=== PATIENT | female | born 1975 | race Caucasian/White ===

== ENCOUNTER 2019-03-30 23:06 | Observation (INO) | payer OTHER, MEDICAID ==
[~2019-03-30] VITALS: Ht 165.1 cm; Wt 102.1 kg
[2019-03-30 23:08] VITALS: BP 183/118
[2019-03-31] MEDS: NITROGLYCERIN 0.4 MG TAB SL ONE (00:03)
[2019-03-31 00:17] LABS: BASOPHILS % (AUTO) 0.6 % (0.0-2.0); EOSINOPHILS # (AUTO) 0.1 K/uL (0-0.4); EOSINOPHILS % (AUTO) 1.3 % (0.0-4.0); HEMATOCRIT 36.4 % (36-48); HEMOGLOBIN 11.5 g/dL (12.0-16.0); LYMPHOCYTES # (AUTO) 2.1 K/uL (2.5-16.5); LYMPHOCYTES % (AUTO) 29.8 % (20.5-51.1); MEAN CORPUSCULAR HEMOGLOBIN 25 pg (27-31); MEAN CORPUSCULAR HGB CONC 32 g/dL (33-37); MEAN CORPUSCULAR VOLUME 80.7 fL (80-94); MONOCYTES # (AUTO) 0.5 K/uL (0.8-1.0); MONOCYTES % (AUTO) 6.8 % (1.7-9.3); NEUTROPHILS # (AUTO) 4.4 K/uL (1.8-7.7); NEUTROPHILS % (AUTO) 61.5 % (42.2-75.2); PLATELET COUNT (AUTO) 339 K/uL (140-450); RED BLOOD CELL COUNT(AUTO) 4.51 MIL/uL (4.20-5.40); RED CELL DISTRIBUTION WIDTH 16.5 % (11.6-13.7); WHITE BLOOD COUNT (AUTO) 7.2 K/uL (4.8-10.8)
[2019-03-31 00:37] LABS: APPEARANCE,URINE SL CLOUDY (CLEAR); BILIRUBIN,URINE 1+ (NEGATIVE); BLOOD, URINE NEGATIVE (NEGATIVE); COLOR,URINE YELLOW (YELLOW); LEUKOCYTE ESTERASE ,URINE NEGATIVE (NEGATIVE); NITRITE, URINE NEGATIVE (NEGATIVE); PH,URINE 5.5 (5.0-9.0); UGLUCOSE NEGATIVE (NEGATIVE)
[2019-03-31 00:38] LABS: ALBUMIN 3.2 g/dL (3.4-5.0); ANION GAP 16.7 (8-16); CARBON DIOXIDE 22.4 mmol/L (21-32); CREATININE 0.8 mg/dL (0.6-1.3); POTASSIUM 4.1 mmol/L (3.5-5.1); TOTAL BILIRUBIN 0.4 mg/dL (0.0-1.0)
[2019-03-31] MEDS: NITROGLYCERIN 2% 1 GM PKT TP ONE (01:09)
[2019-03-31] MEDS: ONDANSETRON 4 MG/2 ML VIAL IVP ONE (01:16)
[2019-03-31] MEDS: FUROSEMIDE 20 MG/2 ML VIAL IVP ONE (01:44)
[2019-03-31 04:32] VITALS: BP 154/11
[2019-03-31] MEDS ORDERED: ONDANSETRON 4 MG/2 ML VIAL IVP PRN (04:55)
[2019-03-31] MEDS ORDERED: LORazepam 2 MG/ML VIAL IVP PRN (04:55)
[2019-03-31] MEDS ORDERED: MORPHINE SULFATE 2 MG/ML SYR IVP PRN (04:55)
[2019-03-31] MEDS ORDERED: amLODIPine 5 MG TAB ONE (12:20)
[2019-04-01] MEDS ORDERED: fentaNYL 0.05 MG/ML VIAL ONE (07:35)
[2019-04-01] MEDS ORDERED: LIDOCAINE 2% 100 MG/5 ML UJET TP ONE (07:35)
[2019-04-01] MEDS ORDERED: amLODIPine 5 MG TAB PO SCH (09:00)
== END 2019-03-31 19:30 | disposition home or self-care (01) ==
LOC: MED 23:06 → MTU 03-31 04:58
PROVIDERS: ADMIT Internal Medicine Pulmonary Disease; ATTEND Internal Medicine Pulmonary Disease
DX: I16.0 Hypertensive urgency (principal); R06.02 Shortness of breath; F15.10 Other stimulant abuse, uncomplicated; I44.7 Left bundle-branch block, unspecified; E66.01 Morbid (severe) obesity due to excess calories; F17.210 Nicotine dependence, cigarettes, uncomplicated
CPT/HCPCS: 36415; 71045; 80053; 81003; 83690; 83880; 84484; 85025; 87081; 93005; 96374; 96375; 99285; G0378; J1940; J2405; J3010

== ENCOUNTER 2019-04-04 21:03 | Emergency (ER) | payer OTHER, MEDICAID ==
[~2019-04-04] VITALS: Ht 162.6 cm; Wt 113.5 kg
[2019-04-04 21:15] VITALS: BP 134/90
--- NOTE | 2019-04-04 21:18 | NUR ---
TO LOBBY A/W BED AMBULATORY
--- NOTE | 2019-04-04 22:30 | NUR ---
44 YEAR OLD FEMALE COMPLAINS OF EPIGASTRIC ABDOMINAL PAIN 9/10 FOR THE PAST 2 DAYS. PATIENT STATES SHE HAS NAUSEA, VOMITTING, AND DIARRHEA. BOWEL SOUNDS ACTIVE X4, NO PAIN ON PALPATION. PATIENT ALERT AND ORIENTED, BREATHING EVEN AND UNLABORED, BED IN LOWEST POSITION, LOCKED, BED RAILS UPX1.
[2019-04-04] MEDS ORDERED: MORPHINE SULFATE 4 MG/ML SYR IM ONE (22:40)
--- NOTE | 2019-04-04 22:41 | NUR ---
X-Ray at bedside.
[2019-04-04 23:03] LABS: BASOPHILS # (AUTO) 0.1 K/uL (0.00-0.22); BASOPHILS % (AUTO) 1.1 % (0.0-2.0); EOSINOPHILS # (AUTO) 0.1 K/uL (0-0.4); EOSINOPHILS % (AUTO) 0.8 % (0.0-4.0); HEMATOCRIT 39.2 % (36-48); HEMOGLOBIN 12.3 g/dL (12.0-16.0); LYMPHOCYTES # (AUTO) 2.4 K/uL (2.5-16.5); MEAN CORPUSCULAR HEMOGLOBIN 25 pg (27-31); MEAN CORPUSCULAR HGB CONC 32 g/dL (33-37); MEAN CORPUSCULAR VOLUME 80.5 fL (80-94); MONOCYTES % (AUTO) 9.7 % (1.7-9.3); NEUTROPHILS # (AUTO) 6.2 K/uL (1.8-7.7); NEUTROPHILS % (AUTO) 63.4 % (42.2-75.2); PLATELET COUNT (AUTO) 344 K/uL (140-450); RED BLOOD CELL COUNT(AUTO) 4.87 MIL/uL (4.20-5.40); RED CELL DISTRIBUTION WIDTH 16.5 % (11.6-13.7); WHITE BLOOD COUNT (AUTO) 9.8 K/uL (4.8-10.8)
[2019-04-04 23:15] LABS: ANION GAP 14.3 (8-16); CREATININE 0.9 mg/dL (0.6-1.3); POTASSIUM 4.3 mmol/L (3.5-5.1)
[2019-04-04 23:21] LABS: ALBUMIN 3.2 g/dL (3.4-5.0); TOTAL BILIRUBIN 0.8 mg/dL (0.0-1.0)
--- NOTE | 2019-04-04 23:25 | NUR ---
PT O2 SATURATION DROPPED TO 88% ON ROOM AIR. NORMAL WORK OF BREATHING, RESPIRATIONS EVEN AND UNLABORED. PT PLACED ON O2 THERAPY, 1L VIA NC. O2 SATURATION AT MAINTAINED AT 98%.
[2019-04-04 23:29] LABS: CREATINE KINASE MB 2.5 ng/mL (0-3.6)
[2019-04-04 23:43] LABS: APPEARANCE,URINE CLOUDY (CLEAR); BILIRUBIN,URINE 1+ (NEGATIVE); BLOOD, URINE NEGATIVE (NEGATIVE); COLOR,URINE YELLOW (YELLOW); LEUKOCYTE ESTERASE ,URINE 1+ (NEGATIVE); NITRITE, URINE NEGATIVE (NEGATIVE); PH,URINE 5.5 (5.0-9.0); UGLUCOSE NEGATIVE (NEGATIVE)
[2019-04-04 23:47] LABS: BARBITURATE, URINE NEG. ng/ml (NEG <=200); BENZODIAZEPINE, URINE NEG. ng/mL (NEG <=200); CANNABINOID, URINE POS. ng/mL (NEG <=50); COCAINE, URINE NEG. ng/mL (NEG <=300); OPIATE, URINE NEG. ng/mL (NEG <=2000); PHENCYCLIDINE SCREEN,URINE NEG. ng/mL (NEG <=25)
[2019-04-05 00:16] LABS: RBC,URINE 0-5 /HPF (0-5)
--- NOTE | 2019-04-05 01:07 | NUR ---
PATIENT STATES HER EPIGASTRIC AREA STILL UNCOMFORTABLE BUT NO LONGER HAS PAIN. STATES STILL HAS NAUSEA, DR DUONG MADE AWARE. PATIENT IS ALERT AND ORIENTED, BREATHING EVEN AND UNLABORED. O2 ON NC INCREASED TO 2.0L FROM 0.5L BECAUSE OXYGEN SATURATING AROUND 94%.
--- NOTE | 2019-04-05 01:12 | NUR ---
ULTRASOUND AT BEDSIDE
[2019-04-05] MEDS ORDERED: ONDANSETRON 4 MG ODT PO ONE (01:30)
[2019-04-05] MEDS ORDERED: ONDANSETRON 4 MG/2 ML VIAL IVP ONE (02:30)
[2019-04-05] MEDS ORDERED: KETOROLAC 30 MG/ML VIAL IVP ONE (02:30)
[2019-04-05] MEDS ORDERED: NACL 0.9% 1,000 ML IV ONE (02:30)
--- NOTE | 2019-04-05 03:05 | NUR ---
PATIENT STATES SHE STILL FEELS NAUSEA AND HAS THROWN UP. DR DUONG MADE AWARE. PATIENT ALERT AND ORIENTED, BREATHING EVEN AND UNLABORED.
--- NOTE | 2019-04-05 03:26 | NUR ---
PT TAKEN TO CT
--- NOTE | 2019-04-05 03:40 | NUR ---
PT RETURN FROM CT
--- NOTE | 2019-04-05 04:25 | NUR ---
PATIENT ALERT AND ORIENTED, BREATHING EVEN AND UNLABORED. PATIENT HAS NOT VOMITTED SINCE ZOFRAN ADMINISTRATION. WILL CONTINUE TO MONITOR.
--- NOTE | 2019-04-05 04:35 | NUR ---
Mau heller in EDM - 04/05/19 at 0558 by [facility] PATIENT ALERT AND ORIENTED, BREATHING EVEN AND UNLABORED. PATIENT HAS NOT VOMITTED SINCE ZOFRAN ADMINISTRATION. WILL CONTINUE TO MONITOR.
--- NOTE | 2019-04-05 05:30 | NUR ---
Mau heller in ED - 04/05/19 at 0550 by [facility] PATIENT NOTIFIED OF DISCHARGE, BUT STATED THAT THEY WANTED AN UPDATE FROM THE DOCTOR FIRST.
--- NOTE | 2019-04-05 05:30 | NUR ---
PATIENT NOTIFIED OF DISCHARGE, BUT STATED THAT THEY WANTED AN UPDATE FROM THE DOCTOR FIRST ABOUT THEIR TEST RESULTS.
--- NOTE | 2019-04-05 05:35 | NUR ---
DOCTOR AD AT BEDSIDE, EXPLAINED TO THE PATIENT THAT THEY CAN STAY IN THE HOSPITAL IF THE PATIENT IS STILL FEELING UNCOMFORTABLE LEAVING. HIGHLY ADVISED TO TAKE PRESCRIPTIONS AND FOLLOW UP WITH PRIMARY HEALTHCARE PROVIDER TODAY IF POSSIBLE OR SOON POSSIBLE. PATIENT STATES "NO ITS OK ILL JUST LEAVE"
[2019-04-05 05:42] VITALS: BP 138/95
--- NOTE | 2019-04-05 05:42 | NUR ---
Patient discharged with v/s stable. Written and verbal after care instructions ABOUT ABDOMINAL PAIN, ALANINE TRANSFERASE, AND ALKALINE PHOSPHATASE given and explained. Patient alert, oriented and verbalized understanding of instructions. Ambulatory with steady gait. All questions addressed prior to discharge. ID band removed. Patient advised to follow up with PMD TODAY IF POSSIBLE. Rx of BENTYL given. Patient educated on indication of medication including possible reaction and side effects. Opportunity to ask questions provided and answered.
== END 2019-04-05 05:42 | disposition home or self-care (01) ==
LOC: MED 21:03
DX: N39.0 Urinary tract infection, site not specified (principal); R74.0 Nonspecific elevation of levels of transaminase and lactic acid dehydrogenase [LDH]; F17.200 Nicotine dependence, unspecified, uncomplicated; I10 Essential (primary) hypertension
CPT/HCPCS: 36415; 71045; 74176; 76705; 80053; 80305; 81001; 81025; 82550; 82553; 83690; 84484; 85025; 87086; 93005; 96372; 96374; 96375; 99284; J1885; J2270; J2405; Q0092; Q0162

== ENCOUNTER 2019-08-13 23:20 | Emergency (ER) | payer OTHER, MEDICAID ==
--- NOTE | 2019-08-13 23:24 | NUR ---
PT SAT IN VITALS CHAIR IN TRIAGE. WHEN I ATTACHED THE O2 SENSOR, SHE TOOK IT OFF AND SAID SHE JUST WANTS TO GO HOME AND LEFT.
== END 2019-08-13 23:24 | disposition left against medical advice (07) ==
LOC: MED 23:20
DX: R06.00 Dyspnea, unspecified (principal); Z53.21 Procedure and treatment not carried out due to patient leaving prior to being seen by health care provider

== ENCOUNTER 2020-09-15 21:02 | Emergency (ER) | payer OTHER, MEDICAID ==
--- NOTE | 2020-09-15 21:07 | NUR ---
PATIENT LEFT WITHOUT BEING SEEN BY DR. GORDON. NO FURTHER CARE PROVIDED FOR PATIENT.
== END 2020-09-15 21:07 | disposition left against medical advice (07) ==
LOC: MED 21:02
DX: Z53.21 Procedure and treatment not carried out due to patient leaving prior to being seen by health care provider (principal)

== ENCOUNTER 2021-12-29 19:35 | Emergency (ER) | payer MEDICAID, OTHER ==
[~2021-12-29] VITALS: Ht 160 cm; Wt 122.9 kg
[~2021-12-29 19:35] MED LIST: ATOR10TA PO; CARV3.12 PO; FURO-572 PO
--- NOTE | 2021-12-29 19:51 | NUR ---
PT W/C ASSISTED TO BED 12
[2021-12-29 20:03] VITALS: BP 88/43
--- NOTE | 2021-12-29 20:07 | NUR ---
46 y/o female, pt presents to ed with c/o syncopal episode prior to arrival. pt states she had 1 micheal, felt hot and when leaving the house she states she "felt the enegry leave my body" and fell. witnessed fall, pt does not recall hitting head. c/o bl leg pain 3/10, unable to ambulate at this time. no visible bruising or lac at this time. a&ox4, general weakness, skin intact/warm/dry. pt also notes her periods have started to become irregular and has had longer bleeding than usual. pmh: chf, htn nka med: aspirin
[2021-12-29 20:47] LABS: BASOPHILS % (AUTO) 0.5 % (0.0-2.0); EOSINOPHILS # (AUTO) 0.1 K/uL (0-0.4); EOSINOPHILS % (AUTO) 1.3 % (0.0-4.0); HEMATOCRIT 41.7 % (36-48); HEMOGLOBIN 13.7 g/dL (12.0-16.0); LYMPHOCYTES # (AUTO) 1.9 K/uL (2.5-16.5); LYMPHOCYTES % (AUTO) 21.1 % (20.5-51.1); MEAN CORPUSCULAR HEMOGLOBIN 29 pg (27-31); MEAN CORPUSCULAR HGB CONC 33 g/dL (33-37); MEAN CORPUSCULAR VOLUME 86.9 fL (80-94); MONOCYTES # (AUTO) 0.7 K/uL (0.8-1.0); MONOCYTES % (AUTO) 8.3 % (1.7-9.3); NEUTROPHILS # (AUTO) 6.2 K/uL (1.8-7.7); NEUTROPHILS % (AUTO) 68.8 % (42.2-75.2); PLATELET COUNT (AUTO) 290 K/uL (140-450); RED CELL DISTRIBUTION WIDTH 17.9 % (11.6-13.7)
[2021-12-29 21:09] LABS: ALBUMIN 2.9 g/dL (3.4-5.0); ANION GAP 16.6 (8-16); CREATININE 1.2 mg/dL (0.6-1.3); POTASSIUM 3.6 mmol/L (3.5-5.1); TOTAL BILIRUBIN 0.2 mg/dL (0.0-1.0)
--- NOTE | 2021-12-29 21:25 | NUR ---
pt states she would like to leave ama. daniel made aware. spoek with pt on importance of ct scan, pt agrees she will stay for ct exam.
--- NOTE | 2021-12-29 21:26 | NUR ---
PT TAKEN TO CT
--- NOTE | 2021-12-29 22:14 | NUR ---
pt wishes to leave at this time and states she will call medical records for xray results. current records of visit given at this time.
--- NOTE | 2021-12-29 22:15 | NUR ---
Patient discharged with v/s stable. Written and verbal after care instructions given and explained. Patient verbalized understanding. Ambulatory with duaghters to car. All questions addressed prior to discharge. Advised to follow up with PMD. ct, xray and labs given copy of
[2021-12-29 22:18] VITALS: BP 88/43
== END 2021-12-29 22:15 | disposition home or self-care (01) ==
LOC: MED 19:35
DX: R55 Syncope and collapse (principal); F10.129 Alcohol abuse with intoxication, unspecified; I11.0 Hypertensive heart disease with heart failure; I50.9 Heart failure, unspecified; Z79.899 Other long term (current) drug therapy
CPT/HCPCS: 36415; 70450; 71045; 73130; 80053; 83735; 83880; 84484; 85025; 93005; 99285; G0482

== ENCOUNTER 2023-03-28 22:16 | Emergency (ER) | payer SELFPAY ==
[~2023-03-28] VITALS: Ht 160 cm; Wt 112.9 kg
[2023-03-28 22:18] VITALS: BP 148/97; PULSE 74; RESP 24; TEMP 97.8; O2SAT 99
[2023-03-28 23:33] VITALS: BP 148/97; PULSE 74; RESP 24; TEMP 97.8; O2SAT 99
== END 2023-03-28 23:16 | disposition left against medical advice (07) ==
LOC: MED 22:16
DX: R06.02 Shortness of breath (principal); Z53.21 Procedure and treatment not carried out due to patient leaving prior to being seen by health care provider
CPT/HCPCS: 99281

== ENCOUNTER 2023-06-04 16:58 | Inpatient (IN) | payer SELFPAY ==
[~2023-06-04] VITALS: Ht 160 cm; Wt 113.4 kg
[2023-06-04 17:41] VITALS: BP 140/105; PULSE 112; RESP 22; TEMP 98.1; O2SAT 99
[2023-06-04] MEDS: ONDANSETRON 4 MG ODT PO ONE (18:28)
[2023-06-04] MEDS: ACETAMINOPHEN EXTRA STRENGTH 500 MG TAB PO ONE (18:29)
[2023-06-04] MEDS: KETOROLAC 30 MG/ML VIAL IM ONE (18:30)
[2023-06-04 19:07] LABS: BASOPHILS % (AUTO) 0.6 % (0.0-2.0); EOSINOPHILS # (AUTO) 0.1 K/uL (0-0.4); EOSINOPHILS % (AUTO) 0.9 % (0.0-4.0); HEMOGLOBIN 12.7 g/dL (12.0-16.0); LYMPHOCYTES # (AUTO) 2.7 K/uL (2.5-16.5); LYMPHOCYTES % (AUTO) 37.6 % (20.5-51.1); MEAN CORPUSCULAR HEMOGLOBIN 25 pg (27-31); MEAN CORPUSCULAR HGB CONC 32 g/dL (33-37); MEAN CORPUSCULAR VOLUME 77.3 fL (80-94); MONOCYTES # (AUTO) 0.9 K/uL (0.8-1.0); MONOCYTES % (AUTO) 12.6 % (1.7-9.3); NEUTROPHILS # (AUTO) 3.5 K/uL (1.8-7.7); NEUTROPHILS % (AUTO) 48.3 % (42.2-75.2); PLATELET COUNT (AUTO) 325 K/uL (140-450); RED BLOOD CELL COUNT(AUTO) 5.18 MIL/uL (4.20-5.40); WHITE BLOOD COUNT (AUTO) 7.2 K/uL (4.8-10.8)
[2023-06-04 19:22] LABS: FLU A ANTIGEN negative (NEGATIVE); FLU B ANTIGEN negative (NEGATIVE)
[2023-06-04 19:32] LABS: ANION GAP 12.3 (8-16); CALCIUM 8.8 mg/dL (8.5-10.1); CARBON DIOXIDE 24.6 mmol/L (21-32); CREATININE 0.8 mg/dL (0.6-1.3); POTASSIUM 3.9 mmol/L (3.5-5.1)
[2023-06-04 19:36] LABS: INR 1.22 (0.8-1.2); PARTIAL THROMBOPLASTIN TIME 24.6 secs (22-35.6); PROTHROMBIN TIME 12.7 secs (10.8-13.4)
[2023-06-04 21:34] LABS: ALBUMIN 3.2 g/dL (3.4-5.0); BILIRUBIN,DIRECT 0.5 mg/dL (0.0-0.3); TOTAL PROTEIN, SERUM 7.8 g/dL (6.4-8.2)
[2023-06-04] MEDS: FUROSEMIDE 40 MG/4 ML VIAL IVP ONE (21:40)
[2023-06-04] MEDS: LORazepam 1 MG TAB PO ONE (23:32)
[2023-06-05] MEDS ORDERED: LORazepam 2 MG/ML VIAL ONE (04:42)
[2023-06-05] MEDS: LORazepam 2 MG/ML VIAL IVP ONE (06:03)
[2023-06-05 09:01] LABS: BASOPHILS % (AUTO) 0.2 % (0.0-2.0); EOSINOPHILS # (AUTO) 0.1 K/uL (0-0.4); EOSINOPHILS % (AUTO) 1.4 % (0.0-4.0); HEMATOCRIT 40.6 % (36-48); HEMOGLOBIN 12.8 g/dL (12.0-16.0); LYMPHOCYTES # (AUTO) 2.2 K/uL (2.5-16.5); LYMPHOCYTES % (AUTO) 35.1 % (20.5-51.1); MEAN CORPUSCULAR HEMOGLOBIN 24 pg (27-31); MEAN CORPUSCULAR HGB CONC 31 g/dL (33-37); MEAN CORPUSCULAR VOLUME 77.5 fL (80-94); MONOCYTES # (AUTO) 0.9 K/uL (0.8-1.0); MONOCYTES % (AUTO) 14.1 % (1.7-9.3); NEUTROPHILS % (AUTO) 49.2 % (42.2-75.2); PLATELET COUNT (AUTO) 278 K/uL (140-450); RED BLOOD CELL COUNT(AUTO) 5.24 MIL/uL (4.20-5.40); RED CELL DISTRIBUTION WIDTH 20.3 % (11.6-13.7); WHITE BLOOD COUNT (AUTO) 6.2 K/uL (4.8-10.8)
[2023-06-05 09:07] LABS: ANION GAP 14.3 (8-16); CALCIUM 8.3 mg/dL (8.5-10.1); CARBON DIOXIDE 22.2 mmol/L (21-32); CREATININE 0.8 mg/dL (0.6-1.3); POTASSIUM 3.5 mmol/L (3.5-5.1)
[2023-06-05 09:13] LABS: TOTAL BILIRUBIN 1.1 mg/dL (0.0-1.0); TOTAL PROTEIN, SERUM 7.5 g/dL (6.4-8.2)
[2023-06-05 09:14] VITALS: PULSE 79; RESP 20; O2SAT 100
[2023-06-05] MEDS: carvediloL 3.125 MG TAB PO SCH (09:49)
[2023-06-05] MEDS: ASPIRIN 81 MG TAB.CHEW PO SCH (09:49)
[2023-06-05] MEDS: FUROSEMIDE 40 MG/4 ML VIAL IVP SCH (09:50)
[2023-06-05 12:00] VITALS: BP 152/90; PULSE 72; PULSE 87; RESP 20; TEMP 97.3; O2SAT 100
[2023-06-05 16:00] VITALS: BP 124/82; PULSE 75; PULSE 82; RESP 20; TEMP 97.9; O2SAT 99
[2023-06-05 20:00] VITALS: BP 126/72; PULSE 86; PULSE 90; RESP 20; TEMP 97.4; O2SAT 97; O2SAT 99
[2023-06-05] MEDS ORDERED: FUROSEMIDE 40 MG/4 ML VIAL IVP SCH (21:00)
[2023-06-05] MEDS: FAMOTIDINE 20 MG/2 ML VIAL IV SCH (21:29)
[2023-06-05] MEDS: ATORVASTATIN 20 MG TAB PO SCH (21:32)
[2023-06-06] VITALS: BP 128/73; PULSE 94; RESP 20; TEMP 97.5; O2SAT 98
[2023-06-06] MEDS: LORazepam 2 MG/ML VIAL IVP PRN (00:40)
[2023-06-06 04:00] VITALS: BP 111/84; PULSE 89; PULSE 94; RESP 18; TEMP 97.3; O2SAT 98
[2023-06-06 07:31] LABS: ALBUMIN 2.7 g/dL (3.4-5.0); ANION GAP 13.6 (8-16); CALCIUM 8.3 mg/dL (8.5-10.1); CARBON DIOXIDE 24.1 mmol/L (21-32); CREATININE 0.9 mg/dL (0.6-1.3); POTASSIUM 3.7 mmol/L (3.5-5.1); TOTAL BILIRUBIN 0.7 mg/dL (0.0-1.0); TOTAL PROTEIN, SERUM 7.1 g/dL (6.4-8.2)
[2023-06-06 07:44] LABS: BASOPHILS % (AUTO) 0.7 % (0.0-2.0); EOSINOPHILS # (AUTO) 0.1 K/uL (0-0.4); EOSINOPHILS % (AUTO) 1.1 % (0.0-4.0); HEMATOCRIT 40.6 % (36-48); HEMOGLOBIN 12.8 g/dL (12.0-16.0); LYMPHOCYTES % (AUTO) 30.6 % (20.5-51.1); MEAN CORPUSCULAR HEMOGLOBIN 25 pg (27-31); MEAN CORPUSCULAR HGB CONC 32 g/dL (33-37); MEAN CORPUSCULAR VOLUME 77.8 fL (80-94); MONOCYTES # (AUTO) 0.8 K/uL (0.8-1.0); MONOCYTES % (AUTO) 12.5 % (1.7-9.3); NEUTROPHILS # (AUTO) 3.5 K/uL (1.8-7.7); NEUTROPHILS % (AUTO) 55.1 % (42.2-75.2); PLATELET COUNT (AUTO) 295 K/uL (140-450); RED BLOOD CELL COUNT(AUTO) 5.22 MIL/uL (4.20-5.40); RED CELL DISTRIBUTION WIDTH 19.9 % (11.6-13.7); WHITE BLOOD COUNT (AUTO) 6.4 K/uL (4.8-10.8)
[2023-06-06 08:00] VITALS: BP 93/56; PULSE 72; PULSE 98; RESP 18; TEMP 97; O2SAT 100
[2023-06-06] MEDS: ENOXAPARIN 40 MG/0.4 ML SYR SUBQ SCH (09:29)
[2023-06-06] MEDS ORDERED: ASPI81CT95 PO (11:34)
[2023-06-06] MEDS ORDERED: CARV3.122 PO (11:34)
[2023-06-06] MEDS ORDERED: ATOR20TA40 PO (11:36)
[2023-06-06] MEDS ORDERED: FURO40TA9 PO (11:36)
[2023-06-06 12:00] VITALS: BP 108/80; PULSE 76; PULSE 96; RESP 20; TEMP 97.9; O2SAT 93
[2023-06-06 13:24] VITALS: BP 108/80; PULSE 76; RESP 20; TEMP 97.9
== END 2023-06-06 14:45 | disposition home or self-care (01) | DRG 313 ==
LOC: MED 16:58 → MTU 23:33
PROVIDERS: ADMIT Family Medicine; ATTEND Family Medicine
DX: R07.89 Other chest pain (principal); E44.0 Moderate protein-calorie malnutrition; I42.9 Cardiomyopathy, unspecified; Z68.41 Body mass index [BMI] 40.0-44.9, adult; Z20.822 Contact with and (suspected) exposure to COVID-19; I11.0 Hypertensive heart disease with heart failure; I50.9 Heart failure, unspecified; E11.649 Type 2 diabetes mellitus with hypoglycemia without coma; Z91.199 Patient's noncompliance with other medical treatment and regimen due to unspecified reason
CPT/HCPCS: 36415; 71045; 80048; 80053; 80076; 82948; 83690; 83880; 84484; 85025; 85610; 85730; 87081; 93005; 96372; 96374; 99285; J1650; J1885; J1940; J2060; J3490; Q0162

== ENCOUNTER 2023-07-20 18:09 | Inpatient (IN) | payer OTHER ==
[~2023-07-20] VITALS: Ht 160 cm; Wt 105.7 kg
[~2023-07-20 18:09] MED LIST changes: +ASPI81CT95 PO; -ATOR10TA PO; +ATOR20TA40 PO; -CARV3.12 PO; +CARV3.122 PO; -FURO-572 PO; +FURO40TA9 PO
[2023-07-20 18:37] VITALS: BP 121/80; PULSE 98; RESP 20; TEMP 97.9; O2SAT 97
[2023-07-20 19:25] LABS: BASOPHILS % (AUTO) 0.3 % (0.0-2.0); EOSINOPHILS % (AUTO) 0.5 % (0.0-4.0); HEMATOCRIT 41.4 % (36-48); HEMOGLOBIN 13.4 g/dL (12.0-16.0); LYMPHOCYTES # (AUTO) 2.9 K/uL (2.5-16.5); LYMPHOCYTES % (AUTO) 29.7 % (20.5-51.1); MEAN CORPUSCULAR HEMOGLOBIN 24 pg (27-31); MEAN CORPUSCULAR HGB CONC 32 g/dL (33-37); MEAN CORPUSCULAR VOLUME 74.8 fL (80-94); MONOCYTES % (AUTO) 10.8 % (1.7-9.3); NEUTROPHILS # (AUTO) 5.7 K/uL (1.8-7.7); NEUTROPHILS % (AUTO) 58.7 % (42.2-75.2); PLATELET COUNT (AUTO) 312 K/uL (140-450); RED BLOOD CELL COUNT(AUTO) 5.54 MIL/uL (4.20-5.40); RED CELL DISTRIBUTION WIDTH 24.4 % (11.6-13.7); WHITE BLOOD COUNT (AUTO) 9.7 K/uL (4.8-10.8)
[2023-07-20 19:49] LABS: ANION GAP 13.3 (8-16); CALCIUM 9.2 mg/dL (8.5-10.1); CARBON DIOXIDE 26.3 mmol/L (21-32); CREATININE 1.1 mg/dL (0.6-1.3); POTASSIUM 3.6 mmol/L (3.5-5.1)
[2023-07-20] MEDS: FUROSEMIDE 40 MG/4 ML VIAL IVP ONE (20:00)
[2023-07-20 20:02] LABS: ALBUMIN 3.2 g/dL (3.4-5.0); BILIRUBIN,DIRECT 0.9 mg/dL (0.0-0.3); TOTAL BILIRUBIN 1.8 mg/dL (0.0-1.0); TOTAL PROTEIN, SERUM 7.2 g/dL (6.4-8.2)
[2023-07-20 20:10] VITALS: O2SAT 95
[2023-07-20] MEDS ORDERED: MAG SULF 2000 MG/WATER PREMIX 50 ML IV PRN (21:00)
[2023-07-20] MEDS ORDERED: MAGNESIUM OXIDE 400 MG TAB PO PRN (21:00)
[2023-07-20] MEDS ORDERED: POTASSIUM CHLORIDE 10 MEQ TABER PO PRN (21:00)
[2023-07-20] MEDS ORDERED: MORPHINE SULFATE 2 MG/ML SYR IVP PRN (21:00)
[2023-07-20] MEDS ORDERED: KCL 20 MEQ IN 100 mL PREMIX 200 ML IV PRN (21:00)
[2023-07-20 22:40] VITALS: BP 126/96; PULSE 94; RESP 16; RESP 18; TEMP 96.9; O2SAT 97
[2023-07-21] MEDS: ONDANSETRON 4 MG/2 ML VIAL IVP PRN (02:33)
[2023-07-21 03:00] VITALS: BP 123/70; PULSE 94; RESP 16; TEMP 96.8; O2SAT 97
[2023-07-21 06:39] LABS: BASOPHILS # (AUTO) 0.1 K/uL (0.00-0.22); BASOPHILS % (AUTO) 0.6 % (0.0-2.0); EOSINOPHILS % (AUTO) 0.4 % (0.0-4.0); HEMATOCRIT 38.9 % (36-48); HEMOGLOBIN 12.4 g/dL (12.0-16.0); LYMPHOCYTES # (AUTO) 2.1 K/uL (2.5-16.5); MEAN CORPUSCULAR HEMOGLOBIN 24 pg (27-31); MEAN CORPUSCULAR HGB CONC 32 g/dL (33-37); MEAN CORPUSCULAR VOLUME 76.1 fL (80-94); MONOCYTES % (AUTO) 11.6 % (1.7-9.3); NEUTROPHILS # (AUTO) 5.4 K/uL (1.8-7.7); NEUTROPHILS % (AUTO) 63.4 % (42.2-75.2); PLATELET COUNT (AUTO) 297 K/uL (140-450); RED BLOOD CELL COUNT(AUTO) 5.12 MIL/uL (4.20-5.40); WHITE BLOOD COUNT (AUTO) 8.6 K/uL (4.8-10.8)
[2023-07-21 07:12] LABS: ALBUMIN 3.2 g/dL (3.4-5.0); CALCIUM 9.2 mg/dL (8.5-10.1); CARBON DIOXIDE 30.6 mmol/L (21-32); CREATININE 1.3 mg/dL (0.6-1.3); POTASSIUM 3.6 mmol/L (3.5-5.1); TOTAL BILIRUBIN 1.5 mg/dL (0.0-1.0); TOTAL PROTEIN, SERUM 6.9 g/dL (6.4-8.2)
[2023-07-21 08:00] VITALS: BP 96/59; PULSE 70; PULSE 84; RESP 16; TEMP 97.1; O2SAT 100
[2023-07-21] MEDS: FUROSEMIDE 40 MG/4 ML VIAL IVP SCH ×2 (09:00→12:20)
[2023-07-21] MEDS: HYDROcodone/APAP 5/325 MG 1 TAB TAB PO PRN (09:29)
[2023-07-21 16:00] VITALS: BP 112/74; PULSE 84; RESP 18; TEMP 98.1; O2SAT 98
[2023-07-21 20:00] VITALS: BP 99/65; PULSE 66; RESP 18; TEMP 97; O2SAT 99
[2023-07-21] MEDS: ACETAMINOPHEN 325 MG TAB PO PRN (23:34)
[2023-07-21] MEDS: carvediloL 3.125 MG TAB PO SCH (23:34)
[2023-07-22 07:23] LABS: BASOPHILS # (AUTO) 0.1 K/uL (0.00-0.22); BASOPHILS % (AUTO) 0.8 % (0.0-2.0); EOSINOPHILS # (AUTO) 0.1 K/uL (0-0.4); EOSINOPHILS % (AUTO) 1.5 % (0.0-4.0); HEMATOCRIT 40.9 % (36-48); LYMPHOCYTES # (AUTO) 2.3 K/uL (2.5-16.5); LYMPHOCYTES % (AUTO) 29.2 % (20.5-51.1); MEAN CORPUSCULAR HEMOGLOBIN 24 pg (27-31); MEAN CORPUSCULAR HGB CONC 32 g/dL (33-37); MEAN CORPUSCULAR VOLUME 76.9 fL (80-94); MONOCYTES % (AUTO) 12.3 % (1.7-9.3); NEUTROPHILS # (AUTO) 4.4 K/uL (1.8-7.7); NEUTROPHILS % (AUTO) 56.2 % (42.2-75.2); PLATELET COUNT (AUTO) 272 K/uL (140-450); RED BLOOD CELL COUNT(AUTO) 5.32 MIL/uL (4.20-5.40); RED CELL DISTRIBUTION WIDTH 24.3 % (11.6-13.7); WHITE BLOOD COUNT (AUTO) 7.8 K/uL (4.8-10.8)
[2023-07-22 07:43] LABS: ALBUMIN 2.9 g/dL (3.4-5.0); ANION GAP 12.1 (8-16); CALCIUM 8.6 mg/dL (8.5-10.1); CARBON DIOXIDE 31.5 mmol/L (21-32); CREATININE 1.4 mg/dL (0.6-1.3); MAGNESIUM 1.8 mg/dL (1.8-2.4); POTASSIUM 3.6 mmol/L (3.5-5.1); TOTAL BILIRUBIN 1.2 mg/dL (0.0-1.0); TOTAL PROTEIN, SERUM 6.6 g/dL (6.4-8.2)
[2023-07-22 08:00] VITALS: BP 103/66; PULSE 80; RESP 17; TEMP 97.4; O2SAT 96
[2023-07-22] MEDS: ATORVASTATIN 20 MG TAB PO SCH (08:58)
[2023-07-22] MEDS: LOSARTAN 25 MG TAB PO SCH (09:00)
[2023-07-22] MEDS ORDERED: FURO40TA9 PO (15:25)
[2023-07-22] MEDS ORDERED: DAPA5TAB PO (15:25)
[2023-07-22] MEDS ORDERED: CARV3.122 PO (15:25)
[2023-07-22] MEDS ORDERED: SACU1TAB PO (15:25)
== END 2023-07-22 16:20 | disposition home or self-care (01) | DRG 291 ==
LOC: MED 18:09 → MTU 20:59
PROVIDERS: ADMIT Hospitalist; ATTEND Hospitalist
DX: I11.0 Hypertensive heart disease with heart failure (principal); I50.23 Acute on chronic systolic (congestive) heart failure; F12.10 Cannabis abuse, uncomplicated; E78.5 Hyperlipidemia, unspecified; I42.7 Cardiomyopathy due to drug and external agent; T43.625A Adverse effect of amphetamines, initial encounter; Z79.82 Long term (current) use of aspirin; Z79.899 Other long term (current) drug therapy; Y92.89 Other specified places as the place of occurrence of the external cause; E11.69 Type 2 diabetes mellitus with other specified complication
CPT/HCPCS: 36415; 71045; 80048; 80053; 80076; 83690; 83735; 83880; 84484; 85025; 87081; 93005; 96374; 99285; J1644; J1940; J2405